=== PATIENT | male | born 1935 | race Caucasian/White ===

== ENCOUNTER 2022-02-28 13:00 | Emergency (ER) | payer MEDICARE, OTHER ==
[~2022-02-28 13:00] MED LIST: AMIODARONE HCL200 MG PO; ASPIRIN CHEWABL81 MG PO; ELIQUIS5 MG PO; FLOMAX 0.4 MG0.4 MG PO; METOPROLOL TART25 MG PO; SYNTHROID50 MCG PO
[2022-02-28] MEDS ORDERED: PREDNISONE 20MG20 MG PO (14:37)
[2022-02-28] MEDS ORDERED: TESSALON PERLE100 MG PO (14:37)
== END 2022-02-28 14:40 | disposition home or self-care (01) ==
LOC: FER 13:00
DX: U07.1 COVID-19 (principal); I10 Essential (primary) hypertension; E03.9 Hypothyroidism, unspecified; I48.91 Unspecified atrial fibrillation; Z79.899 Other long term (current) drug therapy; Z79.890 Hormone replacement therapy; Z79.01 Long term (current) use of anticoagulants; Z28.310 Unvaccinated for COVID-19
CPT/HCPCS: 71046; J1100